=== PATIENT | female | born 1990 | race African-American/Black ===

== ENCOUNTER 2016-07-09 19:35 | Emergency (ER) | payer BC ==
--- NOTE | 2016-07-09 20:22 | ER Document Report ---
ED General - General Chief Complaint: Sore Throat Stated Complaint: SORE THROAT,WEAK Mode of Arrival: Ambulatory Information source: Patient Notes: Patient is a 25 year old female who presents with 1 day history of sore throat. Pain is worse with swallowing. She endorses fever, chills, but denies cough, headache, congestion, ear pain, nausea or vomiting. She also endorses dysuria, urinary frequency and hesitancy for the past 2 days. She has not tried any medication for this. She denies any vaginal bleeding or vaginal discharge. LMP - October, currently has Nexplanon for contraception. TRAVEL OUTSIDE OF THE [place] IN LAST 30 DAYS: No - Related Data Allergies/Adverse Reactions: No Known Allergies Allergy (Unverified 07/09/16 19:44) Past Medical History - General Information source: Patient - Social History Smoking Status: Never Smoker Drug Abuse: Marijuana Family History: Reviewed & Not Pertinent Patient has suicidal ideation: No Patient has homicidal ideation: No Renal/ Medical History: Denies: Hx Peritoneal Dialysis Review of Systems - Review of Systems Constitutional: See HPI EENT: See HPI Cardiovascular: No symptoms reported Respiratory: No symptoms reported Gastrointestinal: No symptoms reported Genitourinary: See HPI Female Genitourinary: See HPI Musculoskeletal: No symptoms reported Skin: No symptoms reported Hematologic/Lymphatic: No symptoms reported Neurological/Psychological: No symptoms reported Physical Exam - Vital signs Vitals: Temp Pulse Resp BP Pulse Ox 99.0 F 110 H 18 120/54 L 100 07/09/16 19:40 07/09/16 19:40 07/09/16 19:40 07/09/16 19:40 07/09/16 19:40 Interpretation: Tachycardic, Febrile - low grade - Notes Notes: PHYSICAL EXAM: CONSTITUTIONAL: Alert and oriented, well-appearing and in no acute distress. HENT: Normocephalic, atraumatic. Ear canals without erythema or foreign body, TMs pearly martinez with good bony landmarks. Nares clear without erythema, septal hematoma or deviation, airway patent. Oropharynx clear with bilateral erythematous tonsilar exudate without malocclusion. Trachea midline. Uvula midline. Moist mucous membranes. EYES: Pupils equal round and reactive to light, EOM intact. Sclera anicteric, conjunctiva are normal. No entrapment. NECK: supple without lymphadenopathy. No midline tenderness or paraspinous muscle spasms. No step-offs or deformities. ROM intact. HEART: Regular rate and rhythm without murmurs. LUNGS: CTAB and equal. No wheezes, rales or rhonchi. GI: Normactive bowel sounds. Nontender, non-distended. No organomegaly. no CVAT. SKIN: Warm and dry. Normal turgor. No rashes or lesions noted. Course - Re-evaluation Re-evalutation: 07/09/16 20:37 Patient seen and examined. Low grade fever, tachycardia 2/2 fever, no respiratory distress. Speaking in full sentences without difficulty. Oropharynx exam consistent with strep pharyngitis - tonsillar exudate and erythema bilaterally. No malocclusion, uvula midline. Will treat for GAS with Bicillin IM here. UA shows mod leuk est, 49 WBC, 2+ bacteria, mod mucus. Will treat with abx, urine culture pending. Discussed supportive care treatments. At this time, will discharge with return precautions and follow-up recommendations. Verbal discharge instructions given at the bedside and opportunity for questions given. Medication warnings reviewed. Patient is in agreement with this plan and has verbalized understanding of return precautions and the need for primary care follow-up in the next 24-72 hours. - Vital Signs Vital signs: Temp Pulse Resp BP Pulse Ox 99.0 F 110 H 18 120/54 L 100 07/09/16 19:40 07/09/16 19:40 07/09/16 19:40 07/09/16 19:40 07/09/16 19:40 Discharge - Discharge Clinical Impression: Strep pharyngitis UTI (urinary tract infection) Qualifiers: Urinary tract infection type: acute cystitis Hematuria presence: without hematuria Qualified Code(s): N30.00 - Acute cystitis without hematuria Condition: Stable Disposition: HOME, SELF-CARE Additional Instructions: SORE THROAT: Sore throats may be caused by viruses, bacteria, or fungi. Most are due to a virus, and must get better on their own. Bacterial sore throats, particularly those due to "strep," need treatment with antibiotics. If an antibiotic is prescribed, be sure to take the medication for a full 10 days. Failure to take the antibiotic can result in complications such as rheumatic fever. Sometimes, an injection of antibiotics is given instead of pills or liquid. This single "shot" is equal in effectiveness to the oral medication. To relieve symptoms, take acetaminophen for pain. Sip clear liquids frequently, or eat popsicles or ice chips. Anesthetic sprays or lozenges may help. Make sure the air in the room is not too dry. Avoid using decongestants or antihistamines. Call the doctor if there is no improvement in two days, or if you have difficulty breathing, increasing throat pain, high fever, rash, or frequent vomiting. STREP THROAT: Your sore throat is due to the streptococcus germ (strep throat). Strep throat usually makes you feel quite ill with fever and aches, headache, swollen sore throat, and tender bumps under the angles of the jaw. Strep throat requires antibiotic treatment. Although the sore throat may go away by itself, complications such as rheumatic fever, kidney disease, or throat abscess can occur. We usually prescribe antibiotics by mouth. Be sure to take the medicine until it's gone. If you stop early, the strep may come back. If you are vomiting, are severely ill, or can't remember to take pills, we can give you an antibiotic shot. Take acetaminophen or ibuprofen for pain and fever. Sip frequent clear liquids, or use popsicles or ice chips. Anesthetic sprays or lozenges may help. Make sure the air in the room is not too dry. Avoid using decongestants or antihistamines. Call the doctor if there is no improvement in three days, or if you have difficulty breathing, increasing throat pain, high fever, rash, or frequent vomiting. BICILLIN (penicillin antibiotic): You have been given a shot of antibiotic called BICILLIN. Your physician has determined that this is the best antibiotic for your condition. Penicillin usually has no side effects. However, allergy to penicillins is common. If you have had an allergic reaction to any drug of the penicillin family, you should never take any other penicillin. Notify your doctor at once if you develop hives, itching, swelling, faintness, or shortness of breath. URINARY TRACT INFECTION: Your evaluation indicates that you have a urinary tract infection. This is due to germs growing in the bladder. This is a common problem. This infection usually responds quickly to antibiotics. Your antibiotic should be taken exactly as prescribed. Drink plenty of fluids -- three to four quarts a day. Occasionally, a bladder anesthetic will be prescribed to help stop the feeling of urgency until the antibiotic has a chance to clear the infection. This may cause your urine to be dark orange. Certain urine infections require a culture. If the doctor obtained a culture, the results will be back in two days. You should call to see if a change in treatment is needed. A repeat urinalysis after you finish treatment is often recommended. The physician will let you know if further testing is required. Call the doctor if you develop fever, chills, flank pain, inability to urinate, or blood in the urine. ANTIBIOTIC THERAPY: You have been given an antibiotic prescription. It's important that you take all the medication, unless instructed otherwise by your physician. Failure to complete the entire course can result in relapse of your condition. Common side effects of antibiotics include nausea, intestinal cramping, or diarrhea. Women may develop vaginal yeast infections, and babies can get yeast (thrush) in the mouth following the use of antibiotics. Contact your physician if you develop significant side effects from this medication. Allergy to this antibiotic can result in hives, wheezing, faintness, or itching. If symptoms of allergy occur, stop the medication and call the doctor. TRIMETHOPRIM-SULFA: You have been given a prescription for trimethoprim-sulfa (TMS, Septra, Bactrim). This is a combination antibiotic of the sulfa class, often used for urinary tract infections, middle ear infections, bronchitis, shigella intestinal infection, and Pneumocystis pneumonia. TMS is usually well-tolerated. Occasional side effects include nausea and decreased appetite. Septra is not recommended for infants less than two months of age. Do not take this medication if you have experienced severe side effects or allergy to sulfa medicine. You should stop this medicine at once and contact your physician if you develop any rash, joint pain, shortness of breath, bruising, or jaundice ( yellow color in the skin), or if you develop any other new or unusual symptoms. URINARY ANESTHETIC AGENT: You have been given a medication (Pyridium) for urinary tract discomfort. This medicine numbs the lining of the bladder and urethra, resulting in less pain, burning, and urgency. You may take it as needed, according to instructions. When the symptoms resolve, you can stop this medication (be sure to continue any other medications the doctor has given you). This medicine turns the urine a dark orange. It may stain underwear. Occasionally, it can cause nausea. Return for evaluation if there are any unexpected effects, such as itching, hives, or shortness of breath. FOLLOW-UP CARE: If you have been referred to a physician for follow-up care, call the physician s office for an appointment as you were instructed or within the next two days. If you experience worsening or a significant change in your symptoms, notify the physician immediately or return to the Emergency Department at any time for re-evaluation. Prescriptions: Phenazopyridine HCl [Pyridium 200 mg Tablet] 200 mg PO TID #15 tablet Sulfamethoxazole/Trimethoprim [Bactrim Ds Tablet] 1 tab PO BID 7 Days Forms: Return to Work
[2016-07-09 20:37] LABS: APPEARANCE,URINE CLOUDY; BILIRUBIN,URINE NEGATIVE (NEGATIVE); GLUCOSE, URINE NEGATIVE (NEGATIVE); KETONES,URINE 20 mg/dL (NEGATIVE); LEUKOCYTE ESTERASE,URINE MODERATE (NEGATIVE); NITRITE,URINE NEGATIVE (NEGATIVE); PROTEIN,URINE 100 mg/dL (NEGATIVE); URINE SPECIFIC GRAVITY 1.029
[2016-07-09] MEDS ORDERED: IBUPROFEN 600 MG TABLET PO ONE (20:44)
[2016-07-09] MEDS ORDERED: PENICILLIN G BENZATHINE 1.2 MILLION UNIT/2 ML DISP.SYRIN IM ONE (20:44)
[2016-07-09 21:14] VITALS: BP 122/56
== END 2016-07-09 21:10 | disposition home or self-care (01) ==
LOC: ER 19:35
DX: J02.0 Streptococcal pharyngitis (principal); N30.00 Acute cystitis without hematuria; R53.1 Weakness; R50.9 Fever, unspecified; R30.0 Dysuria; R00.0 Tachycardia, unspecified
CPT/HCPCS: 99283; 96372; 87086; 81001; J0561

== ENCOUNTER 2016-08-22 11:43 | Emergency (ER) | payer BC ==
[2016-08-22 11:48] VITALS: BP 117/55
[2016-08-22] MEDS ORDERED: IBUPROFEN 600 MG TABLET PO ONE (12:06)
--- NOTE | 2016-08-22 12:11 | ER Document Report ---
HPI - HPI Patient complains to provider of: sore throat Onset: Yesterday Onset/Duration: Gradual Quality of pain: Achy Pain Level: 3 Context: pt presents c/o sore throat that started yesterday. Pt denies any fever,cough or cold symptoms Associated Symptoms: Sore throat. denies: Nonproductive cough, Productive cough , Earache, Fever Exacerbated by: Denies Relieved by: Denies Similar symptoms previously: Yes Recently seen / treated by doctor: No - ROS ROS below otherwise negative: Yes Systems Reviewed and Negative: Yes All other systems reviewed and negative - CONSTITUTIONAL Constitutional: DENIES: Fever, Chills - EENT EENT: REPORTS: Sore Throat - CARDIOVASCULAR Cardiovascular: DENIES: Chest pain - RESPIRATORY Respiratory: DENIES: Trouble Breathing, Coughing - GASTROINTESTINAL Gastrointestinal: DENIES: Nausea, Patient vomiting, Diarrhea - MUSCULOSKELETAL Musculoskeletal: DENIES: Neck Pain - DERM Skin Color: Normal Skin Problems: None Past Medical History - General Information source: Patient - Social History Smoking Status: Never Smoker Frequency of alcohol use: None Drug Abuse: Marijuana Occupation: food service agent Family History: Reviewed & Not Pertinent Patient has suicidal ideation: No Patient has homicidal ideation: No - Medical History Medical History: Negative Renal/ Medical History: Denies: Hx Peritoneal Dialysis Surgical Hx: Negative - Immunizations Hx Diphtheria, Pertussis, Tetanus Vaccination: No Vertical Provider Document - CONSTITUTIONAL Agree With Documented VS: Yes Exam Limitations: No Limitations General Appearance: WD/WN, No Apparent Distress - INFECTION CONTROL TRAVEL OUTSIDE OF THE [place] IN LAST 30 DAYS: No - HEENT HEENT: Atraumatic, Normocephalic, Pharyngeal Tenderness, Pharyngeal Erythema. negative: Pharyngeal Exudate - NECK Neck: Normal Inspection, Supple. negative: Lymphadenopathy-Left, Lymphadenopathy-Right - RESPIRATORY Respiratory: Breath Sounds Normal, No Respiratory Distress, Chest Non-Tender O2 Sat by Pulse Oximetry: 100 - CARDIOVASCULAR Cardiovascular: Regular Rate, Regular Rhythm, No Murmur - BACK Back: Normal Inspection. negative: CVA Tenderness-Right, CVA Tenderness-Left - MUSCULOSKELETAL/EXTREMETIES Musculoskeletal/Extremeties: MAEW, FROM - NEURO Level of Consciousness: Awake, Alert, Appropriate Motor/Sensory: No Motor Deficit - DERM Integumentary: Warm, Dry, No Rash Course - Vital Signs Vital signs: Temp Pulse Resp BP Pulse Ox 98.9 F 100 20 117/55 L 100 05/27/17 11:47 08/22/16 11:47 08/22/16 11:47 08/22/16 11:47 08/22/16 11:47 - Laboratory Laboratory results interpreted by me: 08/22/16 13:09 Labs- Entire Visit 08/22/16 12:10 Group A Strep Rapid NEGATIVE Discharge - Discharge Clinical Impression: Sore throat Condition: Stable Disposition: HOME, SELF-CARE Instructions: Sore Throat ([facility]), Anti-Inflammatory Medication ([facility]) Additional Instructions: Return immediately for any new or worsening symptoms Followup with your primary care provider, call tomorrow to make a followup appointment Throat culture is pending, we will call if you need any different treatment Prescriptions: Naproxen [Naprosyn 250 Nmg Tablet] 1 tab PO BID #14 tablet Forms: Return to Work Referrals: [facility] [Provider Group] - Follow up as needed [facility] [Provider Group] - Follow up as needed
== END 2016-08-22 13:19 | disposition home or self-care (01) ==
LOC: ER 11:43
DX: J02.9 Acute pharyngitis, unspecified (principal)
CPT/HCPCS: 87070; 87880; 99283

== ENCOUNTER 2016-08-23 14:27 | Emergency (ER) | payer BC ==
[2016-08-23 14:35] VITALS: BP 113/61
[2016-08-23] MEDS ORDERED: PREDNISONE 20 MG TABLET PO ONE (15:12)
[2016-08-23] MEDS ORDERED: ACETAMINOPHEN 325 MG TABLET PO ONE (15:12)
--- NOTE | 2016-08-23 15:12 | ER Document Report ---
ED Medical Screen (RME) - General Chief Complaint: Fever Stated Complaint: FEVER,BODY ACHES Time Seen by Provider: 08/23/16 15:04 Notes: This 25-year-old female patient comes emergency room complaining of a 2 day history of sore throat. She reports she now has fever and body aches. She was seen yesterday for the same and had a negative rapid strep. Last menstrual period was January 2015, she has control implant in her arm. Exam shows the tonsils to have a sedate, some erythema, not beefy red. There is minimal anterior cervical adenopathy. No cough congestion or runny nose associated with this. I have greeted and performed a rapid initial assessment of this patient. A comprehensive ED assessment and evaluation of the patient, analysis of test results and completion of the medical decision making process will be conducted by additional ED providers. TRAVEL OUTSIDE OF THE [place] IN LAST 30 DAYS: No - Related Data Allergies/Adverse Reactions: No Known Allergies Allergy (Verified 08/23/16 14:54) Past Medical History - Social History Chew tobacco use (# tins/day): No Frequency of alcohol use: None Drug Abuse: Marijuana Renal/ Medical History: Denies: Hx Peritoneal Dialysis Surgical Hx: Negative - Immunizations Hx Diphtheria, Pertussis, Tetanus Vaccination: No Physical Exam - Vital signs Vitals: Temp Pulse Resp BP Pulse Ox 101 F H 118 H 20 113/61 99 08/23/16 14:33 08/23/16 14:33 08/23/16 14:33 08/23/16 14:33 08/23/16 14:33 Course - Vital Signs Vital signs: Temp Pulse Resp BP Pulse Ox 101 F H 118 H 18 113/61 99 08/23/16 14:33 08/23/16 14:33 08/23/16 14:55 08/23/16 14:33 08/23/16 14:33
[2016-08-23 16:08] LABS: ABSOLUTE LYMPHOCYTES (AUTO) 0.9 10^3/uL (0.5-4.7); ABSOLUTE MONOCYTES (AUTO) 0.7 10^3/uL (0.1-1.4); ABSOLUTE NEUT (AUTO) 6.9 10^3/uL (1.7-8.2); BASOPHILS % (AUTO) 0.4 % (0-2); HEMATOCRIT 38.7 % (36.0-47.0); HEMOGLOBIN 12.9 g/dL (12.0-15.5); LYMPHOCYTES % (AUTO) 10.5 % (13-45); MEAN CORPUSCULAR HEMOGLOBIN 24.1 pg (27.0-33.4); MEAN CORPUSCULAR HGB CONC 33.3 g/dL (32.0-36.0); MEAN CORPUSCULAR VOLUME 72 fl (80-97); MONOCYTES % (AUTO) 8.4 % (3-13); RED BLOOD COUNT 5.35 10^6/uL (3.72-5.28); RED CELL DISTRIBUTION WIDTH 15.5 % (11.5-14.0); SEGMENTED NEUTROPHILS % (AUTO) 80.7 % (42-78); WHITE BLOOD COUNT 8.6 10^3/uL (4.0-10.5)
[2016-08-23] MEDS ORDERED: IBUPROFEN 600 MG TABLET PO ONE (16:10)
--- NOTE | 2016-08-23 16:14 | ER Document Report ---
ED Fever - General Chief Complaint: Fever Stated Complaint: FEVER,BODY ACHES Time Seen by Provider: 08/23/16 15:04 Mode of Arrival: Ambulatory Information source: Patient Notes: -year-old female presents to ED for fever sore throat runny nose body aches since yesterday. As menstrual period was in January 2015 she is on control implant. TRAVEL OUTSIDE OF THE [place] IN LAST 30 DAYS: No - HPI Onset: Other - 2days Onset/Duration: Intermittent Quality of pain: Achy Severity: Moderate Pain Level: 3 Associated symptoms: Body/muscle aches, Fever, Sore throat Similar symptoms previously: No Recently seen / treated by doctor: No - Related Data Allergies/Adverse Reactions: No Known Allergies Allergy (Verified 08/23/16 14:54) Past Medical History - General Information source: Patient - Social History Smoking Status: Never Smoker Cigarette use (# per day): No Chew tobacco use (# tins/day): No Smoking Education Provided: No Frequency of alcohol use: None Drug Abuse: Marijuana Occupation: [employer] Lives with: Family Family History: Arthritis, DM, Hypertension, Malignancy, Thyroid Disfunction, Other - Asthma - Past Medical History Cardiac Medical History: Reports: None Pulmonary Medical History: Reports: None EENT Medical History: Reports: None Neurological Medical History: Reports: None Endocrine Medical History: Reports: None Renal/ Medical History: Reports: None Malignancy Medical History: Reports: None GI Medical History: Reports: None Musculoskeltal Medical History: Reports None Skin Medical History: Reports None Psychiatric Medical History: Reports: None Traumatic Medical History: Reports: None Infectious Medical History: Reports: None Surgical Hx: Negative Past Surgical History: Reports: None - Immunizations Immunizations up to date: No Hx Diphtheria, Pertussis, Tetanus Vaccination: No Review of Systems - Review of Systems Constitutional: Fever EENT: Throat pain Cardiovascular: No symptoms reported Respiratory: No symptoms reported Gastrointestinal: No symptoms reported Genitourinary: No symptoms reported Female Genitourinary: No symptoms reported Musculoskeletal: No symptoms reported Skin: No symptoms reported Hematologic/Lymphatic: No symptoms reported Neurological/Psychological: No symptoms reported -: Yes All other systems reviewed and negative Physical Exam - Vital signs Vitals: Temp Pulse Resp BP Pulse Ox 101 F H 118 H 20 113/61 99 08/23/16 14:33 08/23/16 14:33 08/23/16 14:33 08/23/16 14:33 08/23/16 14:33 Interpretation: Normal, Febrile - Went up to 101.4. Ibuprofen given back down 101. Pulse down to 103. Will discharge home gave a Gatorade for patient to drink. - General General appearance: Appears well, Alert - HEENT Head: Normocephalic, Atraumatic Eyes: Normal Pupils: PERRL Ears: Normal External canal: Normal Tympanic membrane: Normal Sinus: Normal Nasal: Purulent discharge, Swelling Mouth/Lips: Normal Mucous membranes: Normal Pharynx: Erythema, Exudate, Post nasal drainage, Tonsillar hypertrophy Neck: Normal - Respiratory Respiratory status: No respiratory distress Chest status: Nontender Breath sounds: Normal Chest palpation: Normal - Cardiovascular Rhythm: Regular Heart sounds: Normal auscultation Murmur: No - Abdominal Inspection: Normal Distension: No distension Bowel sounds: Normal Tenderness: Nontender Organomegaly: No organomegaly - Back Back: Normal, Nontender - Extremities General upper extremity: Normal inspection, Nontender, Normal color, Normal ROM , Normal temperature General lower extremity: Normal inspection, Nontender, Normal color, Normal ROM , Normal temperature, Normal weight bearing. No: Shirlene's sign - Neurological Neuro grossly intact: Yes Cognition: Normal Orientation: AAOx4 Melodie Coma Scale Eye Opening: Spontaneous Melodie Coma Scale Verbal: Oriented Jacob Coma Scale Motor: Obeys Commands Jacob Coma Scale Total: 15 Speech: Normal Motor strength normal: LUE, RUE, LLE, RLE Sensory: Normal - Psychological Associated symptoms: Normal affect, Normal mood - Skin Skin Temperature: Warm Skin Moisture: Dry Skin Color: Normal Course - Re-evaluation Re-evalutation: 08/23/16 16:55 Lab results with patient and written report given to patient follow-up with her primary doctor. Will treat patient with Penicillin VK she has been treated with steroid already today ibuprofen and Tylenol. Instructions given for Tylenol and Motrin for at home. Patient to follow-up with her primary doctor. - Vital Signs Vital signs: Temp Pulse Resp BP Pulse Ox 101 F H 118 H 18 113/61 99 08/23/16 14:33 08/23/16 14:33 08/23/16 14:55 08/23/16 14:33 08/23/16 14:33 - Laboratory Result Diagrams: 08/23/16 15:24 Laboratory results interpreted by me: 05/28/17 15:24 RBC 5.35 H MCV 72 L MCH 24.1 L RDW 15.5 H Seg Neutrophils % 80.7 H Lymphocytes % 10.5 L Discharge - Discharge Clinical Impression: Sore throat with tonsillitis Condition: Stable Disposition: HOME, SELF-CARE Instructions: Family Physicians / Practices Additional Instructions: SORE THROAT: Sore throats may be caused by viruses, bacteria, or fungi. Most are due to a virus, and must get better on their own. Bacterial sore throats, particularly those due to "strep," need treatment with antibiotics. If an antibiotic is prescribed, be sure to take the medication for a full 10 days. Failure to take the antibiotic can result in complications such as rheumatic fever. Sometimes, an injection of antibiotics is given instead of pills or liquid. This single "shot" is equal in effectiveness to the oral medication. To relieve symptoms, take acetaminophen for pain. Sip clear liquids frequently, or eat popsicles or ice chips. Anesthetic sprays or lozenges may help. Make sure the air in the room is not too dry. Avoid using decongestants or antihistamines. Call the doctor if there is no improvement in two days, or if you have difficulty breathing, increasing throat pain, high fever, rash, or frequent vomiting. PENICILLIN V K: You have been given a prescription for Penicillin VK. Your physician has determined that this is the best antibiotic for your condition. Pen VK can be taken with meals, however more of the antibiotic gets into the bloodstream if it's taken on an empty stomach. Penicillin usually has no side effects. However, allergy to penicillins is common. If you have had an allergic reaction to any drug of the penicillin family, you should never take any other penicillin. Notify your doctor at once if you develop hives, itching, swelling, faintness, or shortness of breath. STEROID MEDICATION: You have been given a medicine of the cortisone/steroid class. This medication is used to control inflammation or allergy. It is usually only given for a short period of time, until the acute process subsides. There are usually no side effects from short-term use of cortisone-like medications. Some persons feel an increased sense of well-being and are not sleepy at bedtime. Long-term use of cortisone medications is best avoided, unless required for a severe condition. If your condition does not remit, or relapses after the course of corticosteroid medication, you should consult your physician. FOLLOW-UP CARE: If you have been referred to a physician for follow-up care, call the physician s office for an appointment as you were instructed or within the next two days. If you experience worsening or a significant change in your symptoms, notify the physician immediately or return to the Emergency Department at any time for re-evaluation. Prescriptions: Penicillin V Potassium [Penicillin Vk 500 mg Tablet] 500 mg PO BID #20 tablet Forms: Smoking Cessation Education, Return to Work
[2016-08-23] MEDS ORDERED: PENICILLIN V POTASSIUM 500 MG TABLET PO ONE (16:54)
== END 2016-08-23 17:30 | disposition home or self-care (01) ==
LOC: ER 14:27
DX: J02.9 Acute pharyngitis, unspecified (principal); J03.90 Acute tonsillitis, unspecified; R50.9 Fever, unspecified; R09.89 Other specified symptoms and signs involving the circulatory and respiratory systems
CPT/HCPCS: 99283; 36415; 87070; 87880; 85025; 86308; J7512

== ENCOUNTER 2016-10-29 21:36 | Emergency (ER) | payer BC, MEDICAID ==
[2016-10-29 22:46] VITALS: BP 113/56
[2016-10-29] MEDS ORDERED: IBUPROFEN 600 MG TABLET PO ONE (22:51)
[2016-10-29] MEDS ORDERED: PENICILLIN V POTASSIUM 500 MG TABLET PO ONE (22:51)
[2016-10-29] MEDS ORDERED: DEXAMETHASONE SOD PHOS INJ 10 MG/1 ML VIAL IM ONE (22:52)
--- NOTE | 2016-10-29 22:59 | ER Document Report ---
HPI - HPI Patient complains to provider of: sore throat, fever Pain Level: 3 Context: Patient is a 25-year-old female comes emergency department for chief complaint of throat pain and fever that started yesterday. She denies any other symptoms including headache, difficulty breathing, difficulty swallowing, drooling. She does report some mild body aches and chills. She took Tylenol 5 hours ago. She has had strep throat before, states this feels similar. She denies abdominal pain. She denies any other medications, she has Implanon in place. - CARDIOVASCULAR Cardiovascular: DENIES: Chest pain - DERM Skin Color: Normal Past Medical History - General Information source: Patient - Social History Smoking Status: Never Smoker Frequency of alcohol use: None Drug Abuse: None Lives with: Family Family History: Arthritis, DM, Hypertension, Malignancy, Thyroid Disfunction, Other - Asthma - Medical History Medical History: Negative Renal/ Medical History: Denies: Hx Peritoneal Dialysis Surgical Hx: Negative - Immunizations Hx Diphtheria, Pertussis, Tetanus Vaccination: Yes Vertical Provider Document - CONSTITUTIONAL General Appearance: WD/WN, No Apparent Distress - patient sitting calmly in the chair - INFECTION CONTROL TRAVEL OUTSIDE OF THE [place] IN LAST 30 DAYS: No - HEENT HEENT: Atraumatic, Normocephalic, Pharyngeal Exudate, Pharyngeal Erythema. negative: Normal ENT Exam - Tonsillar hypertrophy with exudates but no evidence of peritonsillar abscess, no uvular edema or shift. Erythematous rash over the soft palate - NECK Neck: Lymphadenopathy-Left, Lymphadenopathy-Right - RESPIRATORY Respiratory: Breath Sounds Normal O2 Sat by Pulse Oximetry: 98 - CARDIOVASCULAR Cardiovascular: Regular Rate, Regular Rhythm, Tachycardia - mild - GI/ABDOMEN Gastrointestinal: Abdomen Soft, Abdomen Non-Tender - MUSCULOSKELETAL/EXTREMETIES Musculoskeletal/Extremeties: MAEW, FROM, Non-Tender - NEURO Level of Consciousness: Awake, Alert, Appropriate - DERM Integumentary: Warm, Dry, No Rash Course - Re-evaluation Re-evalutation: Examination is consistent with strep throat, patient satisfies all 4 center criteria. I did discuss with patient. She has a soft abdomen, no abdominal pain or evidence of splenomegaly. She actually is quite well-appearing despite being febrile. Patient declines swallow of the throat. Patient will be preemptively treated with penicillin, dexamethasone, ibuprofen. Asked patient if she wants to wait until her fever has resolved, she states she just wants to go home and sleep. Discussed return precautions, patient states understanding and agreement. - Vital Signs Vital signs: Temp Pulse Resp BP Pulse Ox 102.0 F H 115 H 19 113/56 L 98 10/29/16 22:43 10/29/16 22:43 10/29/16 22:43 10/29/16 22:43 10/29/16 22:43 Discharge - Discharge Clinical Impression: Exudative pharyngitis Fever Qualifiers: Fever type: unspecified Qualified Code(s): R50.9 - Fever, unspecified Condition: Stable Disposition: HOME, SELF-CARE Additional Instructions: Your symptoms and examination is consistent with a strep throat infection. Take the penicillin to completion, take ibuprofen or Tylenol for fever and pain. Rest and hydrate. Follow-up with primary care. Return to emergency department for any concerning or worsening symptoms including increased pain, difficulty handling secretions, or any other concerning symptoms. Prescriptions: Penicillin V Potassium [Penicillin Vk 500 mg Tablet] 500 mg PO BID #20 tablet Forms: Return to Work
== END 2016-10-29 23:04 | disposition home or self-care (01) ==
LOC: ER 21:36
DX: J02.9 Acute pharyngitis, unspecified (principal); R50.9 Fever, unspecified; R51 Headache
CPT/HCPCS: 99282; 96372; J1100

== ENCOUNTER 2017-01-17 00:38 | Emergency (ER) | payer SELFPAY ==
[2017-01-17 01:00] VITALS: BP 113/68
--- NOTE | 2017-01-17 02:46 | ER Document Report ---
ED GI/ - General Chief Complaint: Vaginal Discharge Stated Complaint: VAGINAL ISSUE Time Seen by Provider: 01/17/17 02:40 Notes: Patient is a 26-year-old female that comes emergency department for chief complaint of 1 week of abnormal vaginal discharge. She denies pelvic pain, abdominal pain, flank pain, nausea/vomiting, fever or chills. She has a Nexplanon in place. She takes no daily medications. She denies any other symptoms or medical history. TRAVEL OUTSIDE OF THE [place] IN LAST 30 DAYS: No - Related Data Allergies/Adverse Reactions: strawberry Allergy (Verified 01/17/17 00:56) Past Medical History - General Information source: Patient - Social History Smoking Status: Never Smoker Frequency of alcohol use: None Drug Abuse: None Lives with: Family Family History: Arthritis, DM, Hypertension, Malignancy, Thyroid Disfunction, Other - Asthma - Medical History Medical History: Negative Renal/ Medical History: Denies: Hx Peritoneal Dialysis Surgical Hx: Negative - Immunizations Immunizations up to date: No Hx Diphtheria, Pertussis, Tetanus Vaccination: Yes Review of Systems - Review of Systems Constitutional: No symptoms reported EENT: No symptoms reported Cardiovascular: No symptoms reported Respiratory: No symptoms reported Gastrointestinal: No symptoms reported Genitourinary: No symptoms reported Female Genitourinary: See HPI Musculoskeletal: No symptoms reported Skin: No symptoms reported Hematologic/Lymphatic: No symptoms reported Neurological/Psychological: No symptoms reported Physical Exam - Vital signs Vitals: Temp Pulse Resp BP Pulse Ox 98.8 F 83 16 113/68 100 01/17/17 00:57 01/17/17 00:57 01/17/17 00:57 01/17/17 00:57 01/17/17 00:57 Interpretation: Normal - General General appearance: Appears well, Alert - HEENT Head: Normocephalic, Atraumatic Eyes: Normal Pupils: PERRL - Respiratory Respiratory status: No respiratory distress Chest status: Nontender Breath sounds: Normal Chest palpation: Normal - Cardiovascular Rhythm: Regular Heart sounds: Normal auscultation Murmur: No - Abdominal Inspection: Normal Distension: No distension Bowel sounds: Normal Tenderness: Nontender Organomegaly: No organomegaly - Genitourinary External exam: Normal Speculum exam: Cervix closed. No: Vaginal discharge Vaginal bleeding: Mild - brownish discharge Notes: Nurse La Nena present during exam - Back Back: Normal, Nontender - Extremities General upper extremity: Normal inspection, Nontender, Normal color, Normal ROM , Normal temperature General lower extremity: Normal inspection, Nontender, Normal color, Normal ROM , Normal temperature, Normal weight bearing. No: Shirlene's sign - Neurological Neuro grossly intact: Yes Cognition: Normal Orientation: AAOx4 [place] Coma Scale Eye Opening: Spontaneous Melodie Coma Scale Verbal: Oriented [place] Coma Scale Motor: Obeys Commands Melodie Coma Scale Total: 15 Speech: Normal Motor strength normal: LUE, RUE, LLE, RLE Sensory: Normal - Psychological Associated symptoms: Normal affect, Normal mood - Skin Skin Temperature: Warm Skin Moisture: Dry Skin Color: Normal Course - Re-evaluation Re-evalutation: Patient with soft abdomen, no complaints of pain, no fever, no vomiting, very well-appearing. Scant brownish discharge on exam with no other concerning findings. Urinalysis is nonspecific with no symptoms, has bacteria and white blood cells, without symptoms this was cultured. test negative. I discussed with patient, she specifically was asking about a test, satisfied that it is negative, recommended that she follow-up with [facility] for additional evaluation, advised that brownish discharge is most likely slow vaginal bleeding which is very nonspecific especially without pain symptoms. Discussed follow-up and return precautions, provided referral, patient states understanding and agreement. - Vital Signs Vital signs: Temp Pulse Resp BP Pulse Ox 98.8 F 83 16 113/68 100 01/17/17 00:57 01/17/17 00:57 01/17/17 00:57 01/17/17 00:57 01/17/17 00:57 - Laboratory Laboratory results interpreted by me: 01/17/17 03:05 Urine Blood MODERATE H Urine Urobilinogen 2.0 H Ur Leukocyte Esterase TRACE H Discharge - Discharge Clinical Impression: Vaginal discharge Condition: Stable Disposition: HOME, SELF-CARE Additional Instructions: No abnormalities are seen on your examination or evaluation. Irregularities can be seen with different contraception, the discharge appears to be most likely from shedding of the current uterine lining. Recommendation is to follow up routinely with gynecology referral, return to the emergency department for any concerning or worsening symptoms including developing pain, vomiting, fever, etc. Referrals: [facility] [Provider Group] - Follow up as needed
[2017-01-17 03:27] LABS: APPEARANCE,URINE SLIGHTLY-CLOUDY; BILIRUBIN,URINE NEGATIVE (NEGATIVE); GLUCOSE, URINE NEGATIVE (NEGATIVE); KETONES,URINE NEGATIVE (NEGATIVE); LEUKOCYTE ESTERASE,URINE TRACE (NEGATIVE); NITRITE,URINE NEGATIVE (NEGATIVE); PROTEIN,URINE NEGATIVE (NEGATIVE); URINE SPECIFIC GRAVITY 1.026
[2017-01-17 05:20] LABS: CHLAM PCR NOT DETECTED (NOT DETECT)
== END 2017-01-17 04:16 | disposition home or self-care (01) ==
LOC: ER 00:38
DX: N89.8 Other specified noninflammatory disorders of vagina (principal); Z97.5 Presence of (intrauterine) contraceptive device; Z32.02 Encounter for pregnancy test, result negative; Z91.018 Allergy to other foods
CPT/HCPCS: 81001; 81025; 87086; 87210; 87491; 87591; 99283

== ENCOUNTER 2017-05-30 00:25 | Emergency (ER) | payer SELFPAY ==
[2017-05-30] MEDS ORDERED: POLYMYXIN B SULFATE/TMP OPH SOLN (10 ML/ER DISP) OD PRN (01:15)
--- NOTE | 2017-05-30 01:17 | ER Document Report ---
HPI - HPI Patient complains to provider of: Right eye discharge Pain Level: Denies Context: Patient is a 26-year-old female presents emergency department complaining of right eye discharge. She describes that there is no pain but she feels that she is a filmy sensation of her right eye. She denies any vision changes, loss of vision. She states that she had a presentation consistent with this previously was diagnosed with bacterial conjunctivitis. She does not wear contact lenses. No allergies to medication Past Medical History - Social History Smoking Status: Never Smoker Family History: Arthritis, DM, Hypertension, Malignancy, Thyroid Disfunction, Other - Asthma Renal/ Medical History: Denies: Hx Peritoneal Dialysis - Immunizations Immunizations up to date: No Hx Diphtheria, Pertussis, Tetanus Vaccination: Yes Vertical Provider Document - CONSTITUTIONAL Agree With Documented VS: Yes Notes: PHYSICAL EXAM GENERAL: Alert, interacts well. EYES: Pupils equal, round, and reactive to light. Extraocular movements intact. Mild conjunctival injection with purulent drainage. Fluorescein testing without evidence of abrasion, foreign body ENT: Oral mucosa moist, tongue midline. NEUROLOGICAL: Alert and oriented x4. Normal speech. PSYCH: Normal affect, normal mood. SKIN: Warm, dry, normal turgor. No rashes or lesions noted. - INFECTION CONTROL TRAVEL OUTSIDE OF THE [place] IN LAST 30 DAYS: No - RESPIRATORY O2 Sat by Pulse Oximetry: 99 Course - Re-evaluation Re-evalutation: 05/30/17 01:39 Patient is a 26-year-old female is hemodynamically stable, no acute distress and afebrile. Presentation is consistent with bacterial conjunctivitis. Will discharge home on topical Polytrim with instruction to follow-up with ophthalmology this coming week. No evidence at this time for any concerns for retinal detachment, acute glaucoma, iritis. Otherwise discussed strict return precautions and patient is stable for discharge home. - Vital Signs Vital signs: Temp Pulse Resp BP Pulse Ox 97.8 F 76 16 106/53 L 99 05/30/17 00:32 05/30/17 00:32 05/30/17 00:32 05/30/17 00:32 05/30/17 00:32 Discharge - Discharge Clinical Impression: Conjunctivitis Qualifiers: Conjunctivitis type: acute Acute conjunctivitis type: bacterial Laterality: right Qualified Code(s): H10.31 - Unspecified acute conjunctivitis, right eye Condition: Good Disposition: HOME, SELF-CARE Instructions: Conjunctivitis ([facility]), Eyedrop Use ([facility]) Additional Instructions: Please use the drops as directed. 1-2 drops every 3-6 hours for 7-10 days for the affected eye Forms: Return to Work Referrals: ADRIANA NIELSEN MD [ACTIVE STAFF] - Follow up in 3-5 days
[2017-05-30 01:50] VITALS: BP 107/50
== END 2017-05-30 01:53 | disposition home or self-care (01) ==
LOC: ER 00:25
DX: H10.31 Unspecified acute conjunctivitis, right eye (principal)
CPT/HCPCS: 99283; J3490

== ENCOUNTER 2018-06-23 10:03 | Emergency (ER) | payer SELFPAY ==
--- NOTE | 2018-06-23 10:34 | ER Document Report ---
ED Medical Screen (RME) - General Chief Complaint: Chest Pain Stated Complaint: CHEST TIGHTNESS, SHOULDER/SIDE PAIN Time Seen by Provider: 06/23/18 10:27 Notes: Patient is a 47-year-old female, at approximately 6 weeks gravid that presents to the emergency department for chief complaint of chest discomfort. Pain seems to be worse with lying down and with laughing, in the middle of the chest, along the costosternal junction on the left. ROS: Other than noted above, the 12 point review of systems was reviewed with the patient and were negative, all pertinent findings are included in the HPI. PHYSICAL EXAMINATION: Vital signs reviewed. GENERAL: Well-appearing, well-nourished and in no acute distress. HEAD: Atraumatic, normocephalic. EYES: Pupils equal round extraocular movements intact, conjunctiva are normal. ENT: Nares patent NECK: Normal range of motion CV: Heart regular rate and rhythm LUNGS: No respiratory distress Musculoskeletal: Normal range of motion NEUROLOGICAL: Normal speech PSYCH: Normal mood, normal affect. MDM: Patient seen and examined for rapid initial assessment. Vital signs reviewed. A comprehensive ED assessment and evaluation of the patient, analysis of test results and completion of the medical decision making process will be conducted by additional ED providers. *Note is created using voice recognition software and may contain spelling, syntax or grammatical errors. TRAVEL OUTSIDE OF THE [place] IN LAST 30 DAYS: No - Related Data Allergies/Adverse Reactions: strawberry Allergy (Verified 06/23/18 10:05) Past Medical History Renal/ Medical History: Denies: Hx Peritoneal Dialysis - Immunizations Immunizations up to date: No Hx Diphtheria, Pertussis, Tetanus Vaccination: Yes Physical Exam - Vital signs Vitals: Temp Pulse Resp BP Pulse Ox 98 F 84 16 120/46 L 99 06/23/18 10:17 06/23/18 10:17 06/23/18 10:17 06/23/18 10:17 06/23/18 10:17 Course - Vital Signs Vital signs: Temp Pulse Resp BP Pulse Ox 98 F 84 16 120/46 L 99 06/23/18 10:17 06/23/18 10:17 06/23/18 10:17 06/23/18 10:17 06/23/18 10:17
[2018-06-23 10:46] LABS: ABSOLUTE EOSINOPHILS # (AUTO) 0.1 10^3/uL (0.0-0.6); ABSOLUTE MONOCYTES (AUTO) 0.5 10^3/uL (0.1-1.4); ABSOLUTE NEUT (AUTO) 2.9 10^3/uL (1.7-8.2); BASOPHILS % (AUTO) 0.8 % (0-2); EOSINOPHILS % (AUTO) 2.5 % (0-6); HEMATOCRIT 35.4 % (36.0-47.0); HEMOGLOBIN 12.2 g/dL (12.0-15.5); LYMPHOCYTES % (AUTO) 35.5 % (13-45); MEAN CORPUSCULAR HEMOGLOBIN 25.4 pg (27.0-33.4); MEAN CORPUSCULAR HGB CONC 34.6 g/dL (32.0-36.0); MEAN CORPUSCULAR VOLUME 73 fl (80-97); MONOCYTES % (AUTO) 8.8 % (3-13); PLATELET COUNT 299 10^3/uL (150-450); RED BLOOD COUNT 4.82 10^6/uL (3.72-5.28); RED CELL DISTRIBUTION WIDTH 13.5 % (11.5-14.0); SEGMENTED NEUTROPHILS % (AUTO) 52.4 % (42-78); TOTAL CELLS COUNTED % (AUTO) 100 %; WHITE BLOOD COUNT 5.5 10^3/uL (4.0-10.5)
[2018-06-23 11:05] LABS: ALANINE AMINOTRANSFERASE 22 U/L (9-52); ALBUMIN 4.2 g/dL (3.5-5.0); ALKALINE PHOSPHATASE 46 U/L (38-126); ANION GAP 9 (5-19); ASPARTATE AMINO TRANSFERASE 17 U/L (14-36); BILIRUBIN,DIRECT 0.1 mg/dL (0.0-0.4); BLOOD UREA NITROGEN 8 mg/dL (7-20); CALCIUM 9.2 mg/dL (8.4-10.2); CARBON DIOXIDE 22 mmol/L (22-30); CHLORIDE 105 mmol/L (98-107); GLUCOSE 81 mg/dL (75-110); POTASSIUM 4.5 mmol/L (3.6-5.0); SODIUM 135.7 mmol/L (137-145); TOTAL PROTEIN 7.3 g/dL (6.3-8.2)
[2018-06-23] MEDS ORDERED: MAG HYDROX/AL HYDROX/SIMETH SUSP 30 ML UDCUP PO ONE (11:08)
[2018-06-23] MEDS ORDERED: ACETAMINOPHEN 325 MG TABLET PO ONE (11:08)
[2018-06-23] MEDS ORDERED: LIDOCAINE 2% VISCOUS SOLN 20 ML UDCUP PO ONE (11:08)
--- NOTE | 2018-06-23 11:08 | ER Document Report ---
ED Cardiac - General Chief Complaint: Chest Pain Stated Complaint: CHEST TIGHTNESS, SHOULDER/SIDE PAIN Time Seen by Provider: 06/23/18 10:27 Primary Care Provider: MISAEL AMARO MD [ACTIVE STAFF] - Follow up as needed SEEMA ARELLANO MD [ACTIVE STAFF] - Follow up as needed [facility] DEPT,[facility] [NO LOCAL MD] - Follow up as needed Mode of Arrival: Ambulatory Information source: Patient Notes: Patient presents complaining of 3-day history of constant midsternal chest discomfort. Patient states last night the pain did radiate to her left shoulder. Patient denies any cough or cold symptoms. Patient denies any fever, nausea or vomiting. Patient denies any aggravating or alleviating factors. Patient describes pain as a tightness. Patient denies any history of PE or DVT. Patient denies any significant family cardiovascular history. Patient does report some mild anxiety symptoms but denies ever being treated for anxiety. TRAVEL OUTSIDE OF THE [place] IN LAST 30 DAYS: No - HPI Patient complains to provider of: Chest tightness. denies: Palpitations Chest pain location: Substernal Quality of pain: Tightness Pain level currently: 1 Cardiac risk factors: denies: Diabetes, Hypertension, Smoker, + Family history, Dyslipidemia Positive cardiac history: No Associated symptoms: Anxiety. denies: Abdominal pain, Dizziness, Jaw pain, Nausea/vomiting, Neck pain, Palpitations, Rash, Shortness of breath, Syncope, Weakness Exacerbated by: Denies Relieved by: Nothing Similar symptoms previously: No Recently seen / treated by doctor: No - Related Data Allergies/Adverse Reactions: strawberry Allergy (Verified 06/23/18 10:05) Past Medical History - General Information source: Patient Last Menstrual Period: 6 weeks - Social History Smoking Status: Never Smoker Frequency of alcohol use: None Drug Abuse: Marijuana - None since being Occupation: Foodservice Lives with: Family Family History: Arthritis, DM, Hypertension, Malignancy, Thyroid Disfunction, Other - Asthma Patient has suicidal ideation: No Patient has homicidal ideation: No - Medical History Medical History: Negative Renal/ Medical History: Denies: Hx Peritoneal Dialysis Surgical Hx: Negative - Immunizations Immunizations up to date: No Hx Diphtheria, Pertussis, Tetanus Vaccination: Yes Review of Systems - Review of Systems Constitutional: No symptoms reported. denies: Fever, Recent illness EENT: No symptoms reported Cardiovascular: Chest pain. denies: Palpitations, Orthopnea, Syncope, Dizziness Respiratory: No symptoms reported. denies: Cough, Short of breath Gastrointestinal: No symptoms reported. denies: Abdominal pain, Nausea, Vomiting Genitourinary: No symptoms reported. denies: Dysuria Female Genitourinary: No symptoms reported Musculoskeletal: No symptoms reported. denies: Back pain Skin: No symptoms reported. denies: Rash Hematologic/Lymphatic: No symptoms reported Neurological/Psychological: No symptoms reported Physical Exam - Vital signs Vitals: Temp Pulse Resp BP Pulse Ox 98 F 84 16 120/46 L 99 06/23/18 10:17 06/23/18 10:17 06/23/18 10:17 06/23/18 10:17 06/23/18 10:17 - General General appearance: Appears well, Alert In distress: None - HEENT Head: Normocephalic, Atraumatic Eyes: Normal Conjunctiva: Normal Ears: Normal External canal: Normal Nasal: Normal Mouth/Lips: Normal Pharynx: Normal. No: Erythema Neck: Normal, Supple. No: Lymphadenopathy, Meningismus - Respiratory Respiratory status: No respiratory distress Chest status: Tender Breath sounds: Normal. No: Rales, Rhonchi, Stridor, Wheezing Chest palpation: Normal. No: Subcutaneous emphysema, Tender, Ecchymosis - Cardiovascular Rhythm: Regular. No: Tachycardia Heart sounds: S1 appreciated, S2 appreciated Murmur: No - Abdominal Inspection: Normal Distension: No distension Bowel sounds: Normal Tenderness: Nontender Organomegaly: No organomegaly - Back Back: Normal, Nontender. No: CVA tenderness - Extremities General upper extremity: Normal inspection, Normal ROM General lower extremity: Normal inspection, Normal ROM. No: Edema - Neurological Neuro grossly intact: Yes Cognition: Normal [place] Coma Scale Eye Opening: Spontaneous Melodie Coma Scale Verbal: Oriented [place] Coma Scale Motor: Obeys Commands [place] Coma Scale Total: 15 - Psychological Associated symptoms: Normal affect, Normal mood - Skin Skin Temperature: Warm Skin Moisture: Dry Skin Color: Normal Course - Re-evaluation Re-evalutation: 06/23/18 12:26 Patient reports chest pain symptoms have resolved after the GI cocktail. Patient with stable vital signs, no tachypnea or tachycardia. No peripheral edema. No concern for PE at this time. Patient without any findings worrisome for pneumonia. Patient did have an incidental sinus arrhythmia noted on EKG. Patient reports previous episode of chest pain that is been constant for the past 3 days. Patient with a negative troponin. Patient with a heart score of 0. Consulted with Dr. Sheila Mars regarding patient presentation. Recommend starting patient on Zantac. The patient has atypical chest pain as the patient's chest pain is not suggestive of pulmonary embolus, cardiac ischemia, aortic dissection, or other serious etiology. Given the extremely low risk of these diagnoses for the test in evaluation for these possibilities does not appear to be indicated at this time. Patient has been instructed to return if the symptoms worsen or change in any way. - Vital Signs Vital signs: Temp Pulse Resp BP Pulse Ox 98.1 F 66 18 115/71 99 06/23/18 12:43 06/23/18 12:43 06/23/18 12:43 06/23/18 12:43 06/23/18 12:43 - Laboratory Result Diagrams: 06/23/18 10:29 06/23/18 10:29 Laboratory results interpreted by me: 06/23/18 06/23/18 10:29 10:29 Hct 35.4 L MCV 73 L MCH 25.4 L Sodium 135.7 L - Diagnostic Test Radiology reviewed: Reports reviewed - EKG Interpretation by Ga EKG shows normal: Sinus rhythm Rhythm: Arrthymia Additional EKG results interpreted by me: 06/23/18 12:[address] elevation, no T wave inversion, QTC 397. Discharge - Discharge Clinical Impression: Esophagitis Chest pain Qualifiers: Chest pain type: unspecified Qualified Code(s): R07.9 - Chest pain, unspecified Condition: Stable Disposition: HOME, SELF-CARE Instructions: Antacid Therapy ([facility]), Chest Pain of Unclear Cause ([facility]), Esophagitis ([facility]) Additional Instructions: Return immediately for any new or worsening symptoms Followup with your primary care provider, call tomorrow to make a followup appointment Follow-up with a marketing support manager for a recheck concerning the sinus arrhythmia noted on your EKG today. Prescriptions: Ranitidine HCl [Zantac 75 mg Tablet] 75 mg PO BID #30 tablet Forms: Return to Work Referrals: SEEMA ARELLANO MD [ACTIVE STAFF] - Follow up as needed MISAEL AMARO MD [ACTIVE STAFF] - Follow up as needed [facility] DEPT,[facility] [NO LOCAL MD] - Follow up as needed
--- NOTE | 2018-06-23 12:11 | RADIOLOGY REPORT (SQ) ---
EXAM DESCRIPTION: CHEST SINGLE VIEW COMPLETED DATE/TIME: 06/23/2018 11:44 am REASON FOR STUDY: chest pain COMPARISON: None. EXAM PARAMETERS: NUMBER OF VIEWS: One view. TECHNIQUE: Single frontal radiographic view of the chest acquired. RADIATION DOSE: NA LIMITATIONS: None. FINDINGS: LUNGS AND PLEURA: No opacities, masses or pneumothorax. No pleural effusion. MEDIASTINUM AND HILAR STRUCTURES: No masses. Contour normal. HEART AND VASCULAR STRUCTURES: Heart normal in size. Normal vasculature. BONES: No acute findings. HARDWARE: None in the chest. OTHER: No other significant finding. IMPRESSION: NO ACUTE RADIOGRAPHIC FINDING IN THE CHEST. TECHNICAL DOCUMENTATION: JOB ID: [id number] [employer]- All Rights Reserved Reading location - IP/workstation name: [email or web address]
--- NOTE | 2018-06-23 12:33 | ER Document Report ---
Doctor's Note Notes: 06/23/18 12:32 I personally and independently obtained patient history and examined the patient and have reviewed the APC's note, reviewed, discussed and agree with their assessment and plan. HISTORY OF PRESENT ILLNESS: Patient is a 27-year-old female that presents to the emergency department for chief complaint of chest tightness for the last 3 days. ROS: Constitutional: Negative for fever. Cardiovascular: Chest tightness Respiratory: Negative for shortness of breath. Gastrointestinal: Negative for vomiting or abdominal pain Musculoskeletal: Negative for arm, leg or back pain Skin: Negative for rash. Neurological: Negative for weakness or numbness. Unless otherwise stated in this report the patient's positive and negative responses for review of systems for constitutional, eyes, ENT, cardiovascular, respiratory, gastrointestinal, neurological, genitourinary, musculoskeletal, and integumentary systems and related systems to the presenting problem are either as stated in the HPI or were not pertinent or were negative for the symptoms and/or complaints related to the presenting medical problem. PHYSICAL EXAMINATION: Vital signs reviewed, nursing noted reviewed. GENERAL: Well-appearing, well-nourished and in no acute distress. HEAD: Atraumatic, normocephalic. EYES: Eyes appear normal, conjunctiva are normal. ENT: nares patent, oropharynx clear without exudates. Moist mucous membranes. NECK: Normal range of motion, supple without lymphadenopathy LUNGS: Breath sounds clear to auscultation bilaterally and equal. No wheezes rales or rhonchi. HEART: Regular rate and rhythm without murmurs ABDOMEN: Soft, nontender, normoactive bowel sounds. No rebound, guarding, or rigidity. No masses appreciated. EXTREMITIES: Nontender, good range of motion, no pitting or edema. NEUROLOGICAL: No focal neurological deficits. Moves all extremities spontaneously Motor and sensory grossly intact on exam. PSYCH: Normal mood, normal affect. SKIN: Warm, Dry, normal turgor, no rashes or lesions noted on exposed MEDICAL DECISION MAKING: Patient seen and evaluated. She is completely asymptomatic during my eval after GI cocktail and Tylenol. Her EKG and x-ray are unremarkable. Patient was counseled on dietary changes as well as taking Tums and Zantac for reflux. She has no other risk factors for PE that her current and is not tachypneic or hypoxic. My clinical suspicion for PE is very minimal given her well appearance and current asymptomatic state. Patient will be referred to cardiology for follow-up and counseled on return precautions. Please review detail APC documentation. *Note is created using voice recognition software and may contain spelling, syntax or grammatical errors.
[2018-06-23 12:43] VITALS: BP 115/71
--- NOTE | 2018-06-23 14:44 | EKG REPORT ---
SEVERITY:- OTHERWISE NORMAL ECG - SINUS ARRHYTHMIA, RATE [id number] : Confirmed by: Senia Hernandez MD 23-Jun-2018 14:44:22
== END 2018-06-23 12:43 | disposition home or self-care (01) ==
LOC: ER 10:03
DX: O99.611 Diseases of the digestive system complicating pregnancy, first trimester (principal); K20.9 Esophagitis, unspecified; O26.891 Other specified pregnancy related conditions, first trimester; R07.9 Chest pain, unspecified; M25.512 Pain in left shoulder; O99.351 Diseases of the nervous system complicating pregnancy, first trimester; F41.9 Anxiety disorder, unspecified; Z3A.01 Less than 8 weeks gestation of pregnancy
CPT/HCPCS: 93005; 99284; 36415; 85025; 80053; 84484; 71045; 93010; J3490

== ENCOUNTER 2019-02-05 07:05 | Inpatient (IN) | payer MEDICAID ==
[2019-02-05 08:47] LABS: APPEARANCE,URINE CLOUDY; BILIRUBIN,URINE NEGATIVE (NEGATIVE); COLOR,URINE YELLOW; GLUCOSE, URINE NEGATIVE (NEGATIVE); KETONES,URINE NEGATIVE (NEGATIVE); LEUKOCYTE ESTERASE,URINE SMALL (NEGATIVE); NITRITE,URINE NEGATIVE (NEGATIVE); PROTEIN,URINE 100 mg/dL (NEGATIVE); UROBILINOGEN,URINE NEGATIVE mg/dL (<2.0)
[2019-02-05] MEDS ORDERED: OXYTOCIN 10 UNIT/ML VIAL ONE (09:00)
[2019-02-05] MEDS ORDERED: LIDOCAINE 1% INJ-PF (10 MG/ML) 30 ML SDV ONE (09:00)
[2019-02-05] MEDS ORDERED: OXYTOCIN/NORMAL SALINE 20 UNIT/1,000 ML RTUINJ ONE (09:00)
[2019-02-05] MEDS ORDERED: MISOPROSTOL 0.2 MG TABLET ONE (09:00)
[2019-02-05] MEDS ORDERED: RINGERS SOLUTION,LACTATED 1,000 ML IV PRN (09:05)
[2019-02-05] MEDS ORDERED: RINGERS SOLUTION,LACTATED 1,000 ML IV ONE (09:05)
[2019-02-05 09:09] LABS: URINE AMPHETAMINES SCREEN NEGATIVE; URINE BARBITURATES SCREEN NEGATIVE; URINE BENZODIAZEPINES SCREEN NEGATIVE; URINE COCAINE SCREEN NEGATIVE; URINE MARIJUANA (THC) SCREEN NEGATIVE; URINE METHADONE SCREEN NEGATIVE; URINE PHENCYCLIDINE SCREEN NEGATIVE
[2019-02-05 09:46] LABS: ABSOLUTE EOSINOPHILS # (AUTO) 0.1 10^3/uL (0.0-0.6); ABSOLUTE LYMPHOCYTES (AUTO) 1.6 10^3/uL (0.5-4.7); ABSOLUTE MONOCYTES (AUTO) 0.8 10^3/uL (0.1-1.4); ABSOLUTE NEUT (AUTO) 8.3 10^3/uL (1.7-8.2); BASOPHILS % (AUTO) 0.4 % (0-2); EOSINOPHILS % (AUTO) 0.8 % (0-6); HEMATOCRIT 33.9 % (36.0-47.0); HEMOGLOBIN 11.7 g/dL (12.0-15.5); LYMPHOCYTES % (AUTO) 14.9 % (13-45); MEAN CORPUSCULAR HEMOGLOBIN 25.5 pg (27.0-33.4); MEAN CORPUSCULAR HGB CONC 34.5 g/dL (32.0-36.0); MEAN CORPUSCULAR VOLUME 74 fl (80-97); MONOCYTES % (AUTO) 7.7 % (3-13); PLATELET COUNT 266 10^3/uL (150-450); RED BLOOD COUNT 4.59 10^6/uL (3.72-5.28); SEGMENTED NEUTROPHILS % (AUTO) 76.2 % (42-78); TOTAL CELLS COUNTED % (AUTO) 100 %; WHITE BLOOD COUNT 10.9 10^3/uL (4.0-10.5)
[2019-02-05] MEDS ORDERED: OXYTOCIN/NORMAL SALINE 20 UNIT/1,000 ML RTUINJ IV PRN (10:59)
[2019-02-05] MEDS ORDERED: MEASLES,MUMPS&RUBELLA VACC/PF 0.5 ML VIAL SUBCUT PRN (10:59)
[2019-02-05] MEDS ORDERED: MAGNESIUM HYDROXIDE SUSP 30 ML UDCUP PO PRN (10:59)
[2019-02-05] MEDS ORDERED: PROMETHAZINE HCL INJ 25 MG/1 ML VIAL IV PRN (10:59)
[2019-02-05] MEDS ORDERED: BENZOCAINE/MENTHOL AEROSOL SPRAY 56 ML TOP PRN (10:59)
[2019-02-05] MEDS ORDERED: DIBUCAINE 1% OINTMENT 56 GM TP PRN (10:59)
[2019-02-05] MEDS ORDERED: PSEUDOEPHEDRINE HCL 30 MG TABLET PO PRN (10:59)
[2019-02-05] MEDS ORDERED: ACETAMINOPHEN 650 MG SUPP.RECT PR PRN (10:59)
[2019-02-05] MEDS ORDERED: PROMETHAZINE HCL 25 MG SUPP.RECT PR PRN (10:59)
[2019-02-05] MEDS ORDERED: NA PHOS,M-B/NA PHOS,DI-BA (ADULT) 133 ML ENEMA PR PRN (10:59)
[2019-02-05] MEDS ORDERED: PROMETHAZINE HCL 25 MG TABLET PO PRN (10:59)
[2019-02-05] MEDS ORDERED: GLYCERIN/WITCH HAZEL LEAF 1 EACH MED..WIPE TP PRN (10:59)
[2019-02-05] MEDS ORDERED: DIPH/PERTUSS(ACELL)/TETANUS VAC/PF 0.5 ML SYR (>=10YO) IM PRN (10:59)
[2019-02-05] MEDS ORDERED: DIPHENHYDRAMINE HCL 25 MG CAPSULE PO PRN (10:59)
[2019-02-05] MEDS ORDERED: ACETAMINOPHEN WITH CODEINE #3 TABLET PO PRN ×2 (10:59)
[2019-02-05] MEDS ORDERED: ZOLPIDEM TARTRATE 5 MG TABLET PO PRN (10:59)
--- NOTE | 2019-02-05 11:51 | Admission Physical ---
Datetime Report Generated by CPN: 02/05/2019 11:50 CURRENT ADMISSION Chief Complaint: Uterine Contractions Chief Complaint Other: Regular painful contractions Indication for Induction: Not Applicable Admit Impression : Active Labor Admit Impression- Other: in active labor at 38.3 wks EGA Admit Plan: Admit to Unit; Initiate Labor Protocol ALLERGIES Medication Allergies: strawberry (06/23/2018) OBSTETRICAL HISTORY EDC: 02/16/2019 00:00 : 4 Para: 1 Term: 1 : 0 SAB: 2 IAB: 0 Ectopic: 0 Livin Cesareans: 0 VBACs: 0 Multiple Births: 0 Gestational Diabetes: No Rh Sensitization: No Incompetent Cervix: No MALLORY: No Infertility: No ART Treatment: No Uterine Anomaly: No IUGR: No Hx Previous C/S: No Macrosomia: No Hx Loss/Stillborn: No PIH: No Hx : No Placenta Previa/Abruption: No Depression/PP Depression: No PTL/PROM: No Post Hemorrhage: No Obstetrical History Comments: G1- Miscarriage G2- Viable male 2014 G3- G4- Current SEE RECORDS Alcohol: No Marijuana : No Cocaine: No Other Illicit Drugs: No Cigarettes: Never Smoker. [id number] MEDICAL HISTORY Diabetes: No Blood Transfusion: No Pulmonary Disease (Asthma, TB): No Breast Disease: No Hypertension: No Inspector Automatic Typewriter Surgery: No Heart Disease: No Hosp/Surgery: No Autoimmune Disorder: No Anesthetic Complications: No Kidney Disease: No Abnormal Pap Smear: No Neuro/Epilepsy: No Psychiatric Disorders: No Other Medical Diseases: No Hepatitis/Liver Disease: No Significant Family History: No Varicosities/Phlebitis: No Trauma/Violence : No Thyroid Dysfunction: No INFECTIOUS HISTORY Gonorrhea: No Genital Herpes: No Chlamydia: No Tuberculosis: No Syphilis: No Hepatitis: No HIV/AIDS Exposure: No Rash or Viral Illness: No HPV: No Infectious History Comments: +Trich at beginning of PHYSICAL EXAM General: Normal HEENT: Normal Neurologic: Normal Thyroid: Normal Heart: Normal Lungs: Normal Breast: Normal Back: Normal Abdomen: Normal Genitourinary Exam: Normal Extremities: Normal DTRs: Normal Pelvic Type: Adequate Vital Signs: Reviewed; Within Normal Limits Details Vital Signs: Mildly elevated blood pressures VAGINAL EXAM Dilatation: 7 Effacement: 80 Station: -1 Contraction Comments: Regular ctx Q 3-4 minutes MEMBRANES Pooling: Negative Membranes: Intact Amniotic Fluid Color: Clear FETUS A EGA: 38.3 Monitoring: External US FHR- Baseline: 125 Variability: Moderate 6-25bpm Accelerations: 15X15 Decelerations: None FHR Category: Category I Presentation: Vertex Admit Comment: at 38.3 with regular pain full contractions in active labor -Admit to LDR -NPO and IVFs -CEFM and toco -Cervix 7 cm with bulging membranes -GBS negative -labs pending -Hx one prior -Anticipate PLANS FOR LABOR AND DELIVERY Labor and Delivery: None Pain Management: Epidural Feeding Preference: Breast Circumcision: N/A INFORMED CONSENT Informed Consent Obtained: Vaginal Delivery; Section Delivery; Vacuum/Forceps Assist; Risks, Benefits and Alternatives Discussed Signature: with User ID: [email or web address] : with User ID: [email or web address]
--- NOTE | 2019-02-05 13:56 | Delivery Summary ---
Del Sum A-C Datetime Report Generated by CPN: 02/05/2019 13:56 DELIVERY PERSONNEL DELIVERY PERSONNEL: [id number] Delivery Doctor:: Rylee Bullard MD Labor and Delivery Nurse:: Judy Dodge RNtelephone lineman Nurse:: Pamela Sanders RN Nursery Nurse:: Yin Flores RN Fitness And Wellness Director/DENTISTRY TEACHER: Adelia Clarke, ST MATERNAL INFORMATION Delivery Anesthesia: None Medications After Delivery: Pitocin Bolus-Please Comment Meds After Delivery Comment: Pitocin 20 units IV Estimated Blood Loss (ml): 50 Delivery QBL: 50 Maternal Complications: None Provider Comments: After delivery of the head, the shoulders and the rest of the body followed easily. Cord clamped and cut after 30 second delay as infant was vigorous. Baby to materal chest for skin to skin.. Both mother and stable LABOR SUMMARY EDC: 02/16/2019 00:00 No. Babies in Womb: 1 Attempted: No Labor Anesthesia: None LABOR INFORMATION Reason for Induction: Not Applicable Onset of Labor: 02/05/2019 04:00 Complete Dilatation: 02/05/2019 10:35 Oxytocin: N/A Group B Beta Strep: negative Antibiotics # of Doses: n/a Antibiotics Time of Last Dose: n/a Name of Antibiotic Given: n/a Steroids Given: None Reason Steroids Not Administered: Not Applicable MEMBRANES Membranes Rupture Method: Artificial Rupture of Membranes: 02/05/2019 10:27 Length of Rupture (hr): 0.30 Amniotic Fluid Color: Clear Amniotic Fluid Amount: Small Amniotic Fluid Odor: Normal STAGES OF LABOR Stage 1 hr: 6 Stage 1 min: 35 Stage 2 hr: 0 Stage 2 min: 10 Stage 3 hr: 0 Stage 3 min: 7 Total Time in Labor hr: 6 Total Time in Labor min: 52 VAGINAL DELIVERY Episiotomy: None Laceration #1: None Laceration Extension #1: N/A Laceration Repair: Not Applicable Sponge Count Correct: Yes Sharps Count Correct: Yes CSECTION DELIVERY Primary Indication: N/A Secondary Indication: N/A BABY A INFORMATION Delivery Date/Time: 02/05/2019 10:45 Method of Delivery: Vaginal Born in Route : No : N/A Forceps: N/A Vacuum Extraction: N/A Shoulder Dystocia : No PRESENTATION/POSITION BABY A Presentation: Cephalic Cephalic Presentation: Vertex Vertex Position: Left Occipital Anterior Breech Presentation: N/A PLACENTA INFORMATION BABY A Placenta Delivery Time : 02/05/2019 10:52 Placenta Method of Delivery: Spontaneous Placenta Status: Delivered SCORES BABY A Heart Rate 1 min: >100 bpm Resp Effort 1 min: Good Cry Reflex Irritability 1 min: Cough or Sneeze or Pulls Away Muscle Tone 1 min: Active Motion Color 1 min: Blue/Pale Resuscitation Effort 1 min: Tactile Stimulation SCORE 1 MIN: 8 Heart Rate 5 min: >100 bpm Resp Effort 5 min: Good Cry Reflex Irritability 5 min: Cough or Sneeze or Pulls Away Muscle Tone 5 min: Active Motion Color 5 min: Body [place], Extremities Blue Resuscitation Effort 5 min: N/A SCORE 5 MIN: 9 INFORMATION BABY A Gestational Age at Delivery: 38.3 Gestational Status: Early Term- 37- 38.6 Weeks Infant Outcome : Liveborn Condition : Stable Infant Sex: Female IDENTIFICATION BABY A Infant Verification Date/Time: 02/05/2019 11:45 ID Band Number: [id number] Mother's Name Verified: Yes RN Verifying : Priscilla Dodge, RN Additional Verifying Personnel: Yoan Sanders, RN WEIGHT/LENGTH BABY A Infant Birthweight (gm): 2380 Infant Weight (lb): 5 Infant Weight (oz): 4 Length (in): 18.00 Infant Length (cm): 45.72 CORD INFORMATION BABY A No. Cord Vessels: 3 Nuchal Cord : N/A Cord Blood Taken: N/A Suction: Mouth; Nose ASSESSMENT BABY A Infant Complications: None Physical Findings at Delivery: Within Normal Limits Respirations: Appears Normal Skin to Skin: Yes Transferred To: [facility] BABY B INFORMATION : N/A SIGNATURES Signature: with User ID: [email or web address] : with User ID: [email or web address]
[2019-02-05] MEDS: IBUPROFEN 800 MG TABLET PO SCH ×2 (16:13→21:41)
[2019-02-05] MEDS: SENNOSIDES/DOCUSATE 8.6-50 MG 1 EACH TABLET PO SCH (16:13)
[2019-02-05] MEDS: FERROUS SULFATE 325 MG TABLET PO SCH (17:28)
[2019-02-05] MEDS: DOCUSATE SODIUM 100 MG CAPSULE PO SCH (17:29)
[2019-02-05] MEDS: FAMOTIDINE 20 MG TABLET PO SCH (21:41)
[2019-02-06] MEDS: IBUPROFEN 800 MG TABLET PO SCH ×3 (05:55→21:44)
[2019-02-06 07:49] LABS: HEMATOCRIT 27.5 % (36.0-47.0); MEAN CORPUSCULAR HEMOGLOBIN 24.9 pg (27.0-33.4); MEAN CORPUSCULAR HGB CONC 33.4 g/dL (32.0-36.0); MEAN CORPUSCULAR VOLUME 75 fl (80-97); PLATELET COUNT 212 10^3/uL (150-450); RED CELL DISTRIBUTION WIDTH 14.2 % (11.5-14.0); WHITE BLOOD COUNT 11.7 10^3/uL (4.0-10.5)
[2019-02-06 07:53] LABS: HEMOGLOBIN 9.2 g/dL (12.0-15.5)
[2019-02-06] MEDS: SENNOSIDES/DOCUSATE 8.6-50 MG 1 EACH TABLET PO SCH (09:09)
[2019-02-06] MEDS: PRENATAL VITAMIN W DHA CAPSULE PO SCH (09:09)
[2019-02-06] MEDS: FERROUS SULFATE 325 MG TABLET PO SCH ×2 (09:09→17:48)
[2019-02-06] MEDS: DOCUSATE SODIUM 100 MG CAPSULE PO SCH ×2 (09:09→17:48)
[2019-02-06] MEDS ORDERED: PROMETHAZINE HCL INJ 25 MG/1 ML VIAL IV PRN (10:00)
[2019-02-06] MEDS: FAMOTIDINE 20 MG TABLET PO SCH ×2 (10:09→21:44)
--- NOTE | 2019-02-06 13:22 | PDOC PROGRESS REPORT ---
Subjective-OB Progress Note for:: 02/06/19 Subjective: reports bleeding slowing, pain controlled with current meds, denies needs Physical Exam (OB) Vital Signs: Temp Pulse Resp BP Pulse Ox 98.3 F 69 16 126/68 H 100 02/06/19 08:16 02/06/19 08:16 02/06/19 08:16 02/06/19 08:16 02/06/19 08:16 Intake & Output 02/05/19 02/06/19 02/07/19 06:59 06:59 06:59 Weight 81 kg - Abdomen Description: Soft Hernia Present: No Fundal Description: Firm, Midline Fundal Height: u/u - u/2 - Abdominal Distension: No distension Tenderness: Nontender - Extremities Lower extremities: Shirlene's sign - neg Calf: Normal, Nontender Objective-Diagnostic Laboratory: 02/06/19 07:23 02/06/19 07:23 WBC 11.7 H RBC 3.70 L Hgb 9.2 L D Hct 27.5 L MCV 75 L MCH 24.9 L MCHC 33.4 RDW 14.2 H Plt Count 212 Assessment and Plan(PN) - Time Spent with Patient Time with patient: Less than 15 minutes Medications reviewed and adjusted accordingly: Yes - Disposition Anticipated Discharge: Home Within: within 24 hours
[2019-02-07] MEDS: IBUPROFEN 800 MG TABLET PO SCH (05:31)
[2019-02-07 09:05] VITALS: BP 122/75
[2019-02-07] MEDS: FAMOTIDINE 20 MG TABLET PO SCH (09:15)
[2019-02-07] MEDS: DOCUSATE SODIUM 100 MG CAPSULE PO SCH (09:15)
[2019-02-07] MEDS: SENNOSIDES/DOCUSATE 8.6-50 MG 1 EACH TABLET PO SCH (09:15)
[2019-02-07] MEDS: FERROUS SULFATE 325 MG TABLET PO SCH (09:15)
[2019-02-07] MEDS: PRENATAL VITAMIN W DHA CAPSULE PO SCH (09:15)
--- NOTE | 2019-02-07 10:21 | PDOC DISCHARGE SUMMARY ---
Impression - Admit/DC Date/PCP Admission Date/Primary Care Provider: 02/05/19 09:04 REVA SOLORIO MD Discharge Date: 02/07/19 - Discharge Diagnosis (1) Vaginal delivery Is this a current diagnosis for this admission?: Yes (2) Normal course Is this a current diagnosis for this admission?: Yes - Additional Information Resuscitation Status: Full Code Discharge Diet: Regular Discharge Activity: Balance Activity w/Rest, Pelvic Rest Referrals: REVA SOLORIO MD [Primary Care Provider] - Prescriptions: Ibuprofen [Motrin 800 mg Tablet] 800 mg PO Q8HP PRN #60 tablet PRN Reason: Ferrous Sulfate [Feosol 325 mg Tablet] 325 mg PO BID #60 tablet Home Medications: Pnv No.95/Ferrous Fum/Folic AC [ Caplet] 1 tab PO DAILY 02/05/19 Ferrous Sulfate [Feosol 325 mg Tablet] 325 mg PO BID #60 tablet 02/07/19 Ibuprofen [Motrin 800 mg Tablet] 800 mg PO Q8HP PRN #60 tablet 02/07/19 Results Laboratory Results: WBC 11.7 10^3/uL (4.0-10.5) H 02/06/19 07:23 RBC 3.70 10^6/uL (3.72-5.28) L 02/06/19 07:23 Hgb 9.2 g/dL (12.0-15.5) L D 02/06/19 07:23 Hct 27.5 % (36.0-47.0) L 02/06/19 07:23 MCV 75 fl (80-97) L 02/06/19 07:23 MCH 24.9 pg (27.0-33.4) L 02/06/19 07:23 MCHC 33.4 g/dL (32.0-36.0) 02/06/19 07:23 RDW 14.2 % (11.5-14.0) H 02/06/19 07:23 Plt Count 212 10^3/uL (150-450) 02/06/19 07:23 Lymph % (Auto) 14.9 % (13-45) 02/05/19 09:34 [place] % (Auto) 7.7 % (3-13) 02/05/19 09:34 Eos % (Auto) 0.8 % (0-6) 02/05/19 09:34 Baso % (Auto) 0.4 % (0-2) 02/05/19 09:34 Absolute Neuts (auto) 8.3 10^3/uL (1.7-8.2) H 02/05/19 09:34 Absolute Lymphs (auto) 1.6 10^3/uL (0.5-4.7) 02/05/19 09:34 Absolute Monos (auto) 0.8 10^3/uL (0.1-1.4) 02/05/19 09:34 Absolute Eos (auto) 0.1 10^3/uL (0.0-0.6) 02/05/19 09:34 Absolute Basos (auto) 0.0 10^3/uL (0.0-0.2) 02/05/19 09:34 Seg Neutrophils % 76.2 % (42-78) 02/05/19 09:34 Urine Color YELLOW 02/05/19 07:28 Urine Appearance CLOUDY 02/05/19 07:28 Urine pH 7.0 (5.0-9.0) 02/05/19 07:28 Ur Specific [place] 1.020 02/05/19 07:28 Urine Protein 100 mg/dL (NEGATIVE) H 02/05/19 07:28 Urine Glucose (UA) NEGATIVE mg/dL (NEGATIVE) 02/05/19 07:28 Urine Ketones NEGATIVE mg/dL (NEGATIVE) 02/05/19 07:28 Urine Blood LARGE (NEGATIVE) H 02/05/19 07:28 Urine Nitrite NEGATIVE (NEGATIVE) 02/05/19 07:28 Urine Bilirubin NEGATIVE (NEGATIVE) 02/05/19 07:28 Urine Urobilinogen NEGATIVE mg/dL (<2.0) 02/05/19 07:28 Ur Leukocyte Esterase SMALL (NEGATIVE) H 02/05/19 07:28 Urine Ascorbic Acid NEGATIVE (NEGATIVE) 02/05/19 07:28 Urine Opiates Screen NEGATIVE 02/05/19 07:28 Urine Methadone Screen NEGATIVE 02/05/19 07:28 Ur Barbiturates Screen NEGATIVE 02/05/19 07:28 Ur Phencyclidine Scrn NEGATIVE 02/05/19 07:28 Ur Amphetamines Screen NEGATIVE 02/05/19 07:28 U Benzodiazepines Scrn NEGATIVE 11/10/19 07:28 Urine Cocaine Screen NEGATIVE 02/05/19 07:28 U Marijuana (THC) Screen NEGATIVE 02/05/19 07:28 RPR NONREACTIVE (NONREACTIVE) 02/05/19 09:34 Blood Type O POSITIVE 02/05/19 09:34 Antibody Screen NEGATIVE 02/05/19 09:34
== END 2019-02-07 13:43 | disposition home or self-care (01) | DRG 807 ==
LOC: LC 07:05 → LR 09:04 → 2S 14:42
PROVIDERS: ADMIT Obstetrics & Gynecology; ATTEND Obstetrics & Gynecology
PROC: 10E0XZZ Delivery of Products of Conception, External Approach (ICD-10-PCS; principal; 2019-02-05)
PROC: 10907ZC Drainage of Amniotic Fluid, Therapeutic from Products of Conception, Via Natural or Artificial Opening (ICD-10-PCS; 2019-02-05)
DX: O80 Encounter for full-term uncomplicated delivery (principal); Z37.0 Single live birth; Z3A.38 38 weeks gestation of pregnancy; Z91.018 Allergy to other foods
CPT/HCPCS: 36415; 80307; 81005; 85025; 85027; 86592; 86850; 86900; 86901; J2590; J3490